=== PATIENT | female | born 1940 | race Caucasian/White ===

== ENCOUNTER → 2023-12-29 10:06 | Outpatient (BNVA) | payer MEDICARE, SELFPAY | PROVIDERS: Referring Provider Nurse Practitioner Primary Care; Visit Provider Specialist | DX: G30.9 Alzheimer's disease, unspecified (principal); F02.80 Dementia in other diseases classified elsewhere, unspecified severity, without behavioral disturbance, psychotic disturbance, mood disturbance, and anxiety; G62.9 Polyneuropathy, unspecified; G25.0 Essential tremor | CPT/HCPCS: 36415; 82607; 82746; 96116; 99204; 99205 ==

== ENCOUNTER → 2024-03-29 09:36 | Outpatient (BNVA) | payer MEDICARE, SELFPAY | PROVIDERS: Visit Provider Specialist | DX: G30.9 Alzheimer's disease, unspecified (principal); F02.80 Dementia in other diseases classified elsewhere, unspecified severity, without behavioral disturbance, psychotic disturbance, mood disturbance, and anxiety; G62.9 Polyneuropathy, unspecified; G25.0 Essential tremor | CPT/HCPCS: 0346U; 36415; 82542; 96116; 99214 ==